=== PATIENT | male | born 1945 | race Caucasian/White ===

== ENCOUNTER 2016-07-18 10:31 | Outpatient (CLI) | payer MEDICARE, MEDICAID ==
[~2016-07-18 10:31] MED LIST: AMBIEN10 M1 ORAL; AMITIZA24 MCG ORAL; ASPIR 8181 MG ORAL; BUSPAR10 MG ORAL; KLONOPIN1 MG ORAL; LINZESS145 MCG PO; LIPITOR40 MG ORAL; LOPID600 MG ORAL; LOSARTAN POTASS25 M1 PO; LOSARTAN POTASS25 MG ORAL; MAGNESIUM CITR296 M1 PO; PLAVIX75 MG ORAL; PROTONIX40 M2 GT; PROTONIX40 MG ORAL; PROZAC20 MG ORAL; REGLAN10 MG ORAL; SEROQUEL200 MG ORAL; SUBOXONE 8 MG-1 EACH SL; TESTOPEL75 MG SQ; TRAVOPROST 0.02.5 ML BOTH EYES
[2016-07-18 10:58] LABS: EOSINOPHILS % (AUTO) 1.5 % (0.0-3.0); LYMPHOCYTES % (AUTO) 13.9 % (20.0-45.0); MEAN CORPUSCULAR HEMOGLOBIN 29.5 PG (27.0-31.0); MEAN CORPUSCULAR HGB CONC 33.8 G/DL (32.0-36.0); MEAN CORPUSCULAR VOLUME 87 FL (80-99); MEAN PLATELET VOLUME 7.6 FL (6.5-10.1); MONOCYTES % (AUTO) 6.3 % (1.0-10.0); NEUTROPHILS % (AUTO) 77.3 % (45.0-75.0); PLATELET COUNT 224 K/UL (150-450); RED BLOOD COUNT 3.85 M/UL (4.70-6.10); RED CELL DISTRIBUTION WIDTH 11.2 % (11.6-14.8); WHITE BLOOD COUNT 7.4 K/UL (4.8-10.8)
[2016-07-18 11:43] LABS: ALANINE AMINOTRANSFERASE 19 U/L (3-41); ALBUMIN/GLOBULIN RATIO 1.7 (1.0-2.7); ANION GAP 17 (5-15); ASPARTATE AMINO TRANSFERASE 23 U/L (5-40); CALCIUM 9.3 mg/dL (8.6-10.2); CARBON DIOXIDE 25 mEQ/L (20-30); CHLORIDE 96 mEQ/L (98-107); CHOLESTEROL 219 mg/dL (< 200); CHOLESTEROL/HDL RATIO 6.6 (3.3-4.4); CREATININE 1.5 mg/dL (0.7-1.2); GLOMERULAR FILTRATION RATE 46.4 mL/min (>60); HEMOLYSIS 2; LDL CHOLESTEROL (CALC.) 131 mg/dL (60-99); POTASSIUM 4.2 mEQ/L (3.4-4.9); SODIUM 138 mEQ/L (135-145); TOTAL PROTEIN 7.3 g/dL (6.6-8.7); URIC ACID 9.2 mg/dL (3.0-7.5)
[2016-07-18 12:02] LABS: ERYTHROCYTE SEDIMENTATION RATE 44 MM/HR (0-20)
--- NOTE | 2016-07-18 14:02 | Diagnostic Imaging Report ---
APPROVED REPORT CPT Code: 39155 Symptoms Comments: R/O PAD Comments Hx of Myalgia Gout BILATERAL: Common femoral artery waveform analysis is within normal limits at rest. Color flow duplex sonography reveals minimal calcification throughout the superficial femoral, and popliteal arteries. There is no evidence of stenosis or occlusion within these segments. The tibioperoneal trunks were patent. GILBERTO within normal limits as follows: 1.0 (right leg) and 1.0 (left leg). Doppler tibial artery waveform analysis is also within normal limits bilaterally. There is no evidence of significant arterial occlusive disease, bilaterally.
--- NOTE | 2016-07-18 15:15 | IOP Daily Group Progress Note ---
IOP Daily Group Progress Note Treatment Plan/Target Problem: Date: Jul 18, 2016 Problem: depression Program: reflections Group Reflections - Sunday: group 3 (11:30am-12:15pm) Therapy Goal(s) of Group: coping tools for symptoms, identifying strengths, stress reduction Observations: attentive, distracted, monopolizing Staff Intervention: assisted with identifying symptoms, assisted with problem solving, provided psycho-education, provided reassurance Staff Intervention: Pt received support and feedback from group members and assembler wire group. Pt spoke about some of the things that inspire him and how he keeps inspired. Response/Progress Noted: " talking to people that listen about things that interest me... Rock music inspires me and going to concerts." OJNNIE HEATH Jul 18, 2016 15:15
== END 2016-07-18 12:31 | disposition home or self-care (01) ==
LOC: VAS 10:31
DX: I73.9 Peripheral vascular disease, unspecified (principal); M79.1 Myalgia; M10.9 Gout, unspecified; E78.5 Hyperlipidemia, unspecified
CPT/HCPCS: 36415; 80053; 80061; 82550; 84550; 85025; 85651; 93925

== ENCOUNTER 2016-07-25 09:32 | Emergency (ER) | payer MEDICARE, MEDICAID ==
[~2016-07-25] VITALS: Ht 172.7 cm; Wt 81.6 kg
[2016-07-25] MEDS ORDERED: TYLENOL EXTRA500 MG ORAL (11:26)
[2016-07-25 11:36] VITALS: BP 90/59
--- NOTE | 2016-07-25 15:24 | Emergency Room Report ---
History of Present Illness General Chief Complaint: Lower Extremity Injury Source: Patient Present Illness HPI 70-year-old male presents to ED for evaluation. States yesterday had a mechanical trip and fall down the stairs. Twisted his right ankle. Denies hitting his head or LOC. Is here complaining of right ankle pain and swelling. Pain is throbbing, 9/10, nonradiating. Is able to bear weight. No other aggravating or relieving factors. Denies any other associated symptoms Allergies: Coded Allergies: AMINOGLYCOSIDES (Verified Allergy, Unknown, 02/24/16) CARBAPENEMS (Verified Allergy, Unknown, 02/24/16) CEPHALOSPORINS (Verified Allergy, Unknown, 02/24/16) CIPROFLOXACIN (Verified Allergy, Unknown, 02/24/16) LEVOFLOXACIN (Verified Allergy, Unknown, 02/24/16) PENICILLINS (Verified Allergy, Unknown, 02/24/16) Uncoded Allergies: all antibiotics (Adverse Reaction, Intermediate, 08/13/14) feels weak and sick Patient History Past Medical History: HTN, GERD Pertinent Family History: none Social History: Denies: alcohol use, drug use, smoking Immunizations: UTD Reviewed Nursing Documentation: PMH: Agreed, PSxH: Agreed Nursing Documentation-PMH Past Medical History: No History, Except For Hx Hypertension: Yes Hx Cancer: Yes - skin cancer - 2010 - removed lesion Hx Gastrointestinal Problems: Yes - GERD Hx Neurological Problems: No Review of Systems All Other Systems: negative except mentioned in HPI Physical Exam Vital Signs Date Time Temp Pulse Resp B/P Pulse Ox O2 Delivery O2 Flow Rate FiO2 07/25/16 10:00 98.1 66 18 90/59 94 Room Air Sp02 EP Interpretation: reviewed, normal General Appearance: no apparent distress, alert, GCS 15, non-toxic Head: normocephalic Eyes: bilateral eye PERRL, bilateral eye normal inspection ENT: normal ENT inspection Neck: normal inspection Respiratory: normal inspection Cardiovascular #1: normal inspection Gastrointestinal: normal inspection Rectal: deferred Genitourinary: no CVA tenderness Musculoskeletal: swelling - R ankle Neurologic: alert, oriented x3, responsive, motor strength/tone normal, sensory intact, speech normal Psychiatric: normal inspection Skin: normal inspection Lymphatic: normal inspection Procedures Splinting Splinting : Consent: Verbal Pre-Made Type: CAROLE wrap - R ankle Pre-Proc Neuro Vasc Exam: normal Post-Proc Neuro Vasc Exam: normal Patient Tolerated: Well Complications: None Medical Decision Making Diagnostic Impression: Primary Impression: Ankle sprain Qualified Codes: S93.401A - Sprain of unspecified ligament of right ankle, initial encounter ER Course Hospital Course 70-year-old M presents to ED complaining of R ankle pain s/p trip and fall Differential diagnoses include: Fracture, dislocation, sprain, contusion Clinical course Patient placed on stretcher. After initial history and physical, I ordered Xrays of R foot/ankle. patient declined pain medications Xrays read shows no acute fracture/dislocation. likely ATFL sprain. placed in carole wrap, given crutches Diagnosis - ankle sprain Stable and discharged to home with prescription for Tylenol. apply ice, keep elevated. weight bear as tolerated. Followup with PMD. Return to ED if symptoms recur or worsen Other X-Ray Diagnostic Results X-Ray ordered: R ankle, R foot # of Views/Limited Vs Complete: 3 View Interpretation: no fractures, no dislocation, other Indication: Other - Right ankle-No fracture, no dislocation, + soft tissue swelling Impression: Other - consider ATFL sprain Date Electronically Signed: Jul 25, 2016 Time Electronically Signed: 15:33 Interpreting ER Physician: Wilson Roe MD Last Vital Signs Date Time Temp Pulse Resp B/P Pulse Ox O2 Delivery O2 Flow Rate FiO2 07/25/16 11:36 98.1 18 90/59 94 Room Air 07/25/16 10:00 66 Status: improved Disposition: HOME, SELF-CARE Condition: Stable Scripts Acetaminophen* (TYLENOL EXTRA STRENGTH*) 500 Mg Tablet 500 MG ORAL Q8H Y for Prn Headache/Temp > 101, #30 TAB 0 Refills Prov: WILSON ROE M.D. 07/25/16 Referrals: NOT CHOSEN DIEGO/,REFERRING Patient Instructions: Ankle Sprain WILSON ROE M.D. Jul 25, 2016 15:24
--- NOTE | 2016-07-26 09:34 | Diagnostic Imaging Report ---
Indications: Right ankle and foot injury, pain and swelling Technique: 3 views right ankle, 3 views right foot. Findings: Comparison: None Soft tissues over the anterolateral aspect of the ankle are swollen and increased in attenuation. No fracture, dislocation, joint space widening , additional soft tissue swelling/foreign body/gas, or other acute changes are identified. IMPRESSION: Consider ATFL sprain No other evidence of acute injury to the right ankle or foot.
== END 2016-07-25 11:45 | disposition home or self-care (01) ==
LOC: EMR 10:38
DX: S93.401A Sprain of unspecified ligament of right ankle, initial encounter (principal); W01.0XXA Fall on same level from slipping, tripping and stumbling without subsequent striking against object, initial encounter; Y93.9 Activity, unspecified; Y92.9 Unspecified place or not applicable; Z88.0 Allergy status to penicillin; Z88.8 Allergy status to other drugs, medicaments and biological substances; I10 Essential (primary) hypertension; K21.9 Gastro-esophageal reflux disease without esophagitis; Z85.828 Personal history of other malignant neoplasm of skin; Z88.1 Allergy status to other antibiotic agents
CPT/HCPCS: 29540; 99283